=== PATIENT | female | born 1995 | race Caucasian/White ===

== ENCOUNTER 2023-05-29 10:09 | Emergency (ER) | payer MEDICAID ==
[~2023-05-29] VITALS: Ht 172.7 cm; Wt 100.0 kg
[~2023-05-29 10:09] MED LIST: CEPH-558 PO; DIVA-112 PO; GABA-1201 PO; RISP3TAB63 PO
[2023-05-29 10:13] VITALS: BP 110/78; PULSE 71; RESP 16; TEMP 98.3
[2023-05-29] MEDS ORDERED: CEPHALEXIN MONOHYDRATE 500 MG CAPSULE PO ONE (13:15)
[2023-05-29] MEDS ORDERED: OxyCODONE HCL/ACETAMINOPHEN 5-325 MG TABLET PO ONE (13:15)
[2023-05-29] MEDS ORDERED: DOXY-354 PO (13:43)
== END 2023-05-29 18:04 | disposition left against medical advice (07) ==
LOC: EMS 10:09
DX: L02.511 Cutaneous abscess of right hand (principal); F20.9 Schizophrenia, unspecified; Z88.6 Allergy status to analgesic agent; Z91.018 Allergy to other foods; Z91.040 Latex allergy status; Z88.8 Allergy status to other drugs, medicaments and biological substances
CPT/HCPCS: 10160; 84702; 99283; 99284

== ENCOUNTER 2023-09-14 03:27 | Emergency (ER) | payer MEDICAID ==
[~2023-09-14] VITALS: Ht 162.6 cm; Wt 129.1 kg
[~2023-09-14 03:27] MED LIST changes: -CEPH-558 PO; +DOXY-354 PO
[2023-09-14 03:28] VITALS: BP 129/78; PULSE 96; RESP 14; TEMP 98.6
[2023-09-14] MEDS ORDERED: HYDR-4584 PO (03:35)
[2023-09-14] MEDS ORDERED: GABA-1216 PO (03:35)
[2023-09-14] MEDS ORDERED: GABA-1201 PO (03:35)
[2023-09-14] MEDS ORDERED: PRAZ1 PO (03:35)
[2023-09-14] MEDS ORDERED: TRAZ150T80 PO (03:35)
[2023-09-14] MEDS ORDERED: TraZODone HCL 50 MG TABLET PO ONE (04:00)
[2023-09-14] MEDS ORDERED: HydrOXYzine PAMOATE 25 MG CAPSULE PO ONE (04:00)
[2023-09-14] MEDS ORDERED: PHENYLEPHRINE/SHK LV/MIN OIL/PET 57 GM OINTMENT TP ONE (04:00)
== END 2023-09-14 04:18 | disposition home or self-care (01) ==
LOC: EMS 03:27
DX: F41.9 Anxiety disorder, unspecified (principal); K64.9 Unspecified hemorrhoids; F32.A Depression, unspecified; F20.9 Schizophrenia, unspecified; Z88.6 Allergy status to analgesic agent; Z91.018 Allergy to other foods; Z91.040 Latex allergy status; Z88.8 Allergy status to other drugs, medicaments and biological substances
CPT/HCPCS: 99283

== ENCOUNTER 2024-01-19 13:08 | Inpatient (IN) | payer MEDICAID, OTHER ==
[~2024-01-19] VITALS: Ht 162.6 cm; Wt 140.1 kg
[~2024-01-19 13:08] MED LIST changes: +ACET-3385 PO; +CIPR500T10 PO; -DIVA-112 PO; -DOXY-354 PO; +GABA-1216 PO; +METR500 PO; +ONDA-104 PO; +PRAZ1 PO; -RISP3TAB63 PO; +TRAZ150T80 PO
[2024-01-19 14:29] LABS: BASOPHILS % (AUTO) 0.6 % (0.0-2.0); EOSINOPHILS % (AUTO) 0.7 % (1.0-6.0); HEMATOCRIT 43.9 % (36-46); HEMOGLOBIN 14.5 g/dL (12.0-16.0); LYMPHOCYTES % (AUTO) 20.9 % (22.0-44.0); MEAN CORPUSCULAR HEMOGLOBIN 29.9 pg (26.0-34.0); MEAN CORPUSCULAR HGB CONC 33.1 G/dL (31.0-37.0); MEAN CORPUSCULAR VOLUME 90 fL (80-100); MONOCYTES # (AUTO) 0.8 K/uL (0.1-1.0); MONOCYTES % (AUTO) 7.9 % (2.0-9.0); NEUTROPHILS # (AUTO) 6.7 K/uL (1.8-7.7); NEUTROPHILS % (AUTO) 69.9 % (40.0-70.0); PLATELET COUNT (AUTO) 230 K/uL (150-450); RED BLOOD CELL COUNT(AUTO) 4.86 MIL/uL (4.00-5.20); RED CELL DISTRIBUTION WIDTH 14.5 % (11.5-14.5); WHITE BLOOD COUNT (AUTO) 9.6 K/uL (4.5-11.0)
[2024-01-19 14:36] LABS: ANION GAP 8 mmol/L (8-16); CALCIUM, TOTAL 9.1 mg/dL (8.8-10.5); CARBON DIOXIDE 28 mmol/L (22-29); CHLORIDE 102 mmol/L (98-107); CREATININE 0.88 mg/dL (0.60-1.30); GLOMERULAR FILTR. RATE CALC > 60 mL/min (>60); GLUCOSE,RANDOM 100 mg/dL (70-110); SODIUM SERUM 138 mmol/L (136-145); UREA NITROGEN, BLOOD 13 mg/dL (7-18)
[2024-01-19 14:42] LABS: ALCOHOL, BLOOD (SERUM) < 3 mg/dL (0-10)
[2024-01-19 14:47] LABS: COVID AG,FIA SOURCE NASAL SWAB
[2024-01-19 14:49] LABS: ALANINE AMINOTRANSFERASE 39 U/L (12-78); ALBUMIN 3.8 g/dL (3.4-5.0); ALKALINE PHOSPHATASE 73 U/L (46-116); ASPARTATE AMINOTRANSFERASE 22 U/L (15-37); BILIRUBIN,TOTAL 0.4 mg/dL (0.1-1.0); HCG,QUANTITATIVE < 1 mIU/mL (0-6); TOTAL PROTEIN, SERUM 7.8 g/dL (6.4-8.2)
[2024-01-19 14:57] LABS: PH,URINE DRUG SCREEN 7.5 (5.0-8.0)
[2024-01-19 15:00] LABS: ALCOHOL, URINE DRUG SCREEN NEGATIVE (NEGATIVE); AMPHET/METH SCREEN,URINE POSITIVE (NEGATIVE); BARBITURATE SCREEN, URINE NEGATIVE (NEGATIVE); BENZODIAZEPINES SCREEN,URINE NEGATIVE (NEGATIVE); CANNABINOID SCREEN,URINE NEGATIVE (NEGATIVE); COCAINE SCREEN,URINE NEGATIVE (NEGATIVE); METHADONE SCREEN, URINE NEGATIVE (NEGATIVE); OPIATE SCREEN,URINE NEGATIVE (NEGATIVE); PHENCYCLIDINE SCREEN,URINE NEGATIVE (NEGATIVE)
[2024-01-19 15:20] LABS: SARS-COV2 (COVID) ANTIGEN,FIA Negative (Negative)
[2024-01-19] MEDS: SODIUM CHLORIDE 0.9% 250 ML IRRIG SOLUTION BOTTLE IRRIG ONE (17:45)
[2024-01-19] MEDS: LORazepam 2 MG TABLET PO ONE (20:55)
[2024-01-19] MEDS: DiphenhydrAMINE HCL 50 MG CAPSULE PO ONE (20:55)
[2024-01-19] MEDS: HALOPERIDOL 5 MG TABLET PO ONE (20:55)
[2024-01-19] MEDS ORDERED: LORazepam 2 MG TABLET PO PRN (21:30)
[2024-01-20 02:06] VITALS: BP 129/75; PULSE 97; RESP 16; TEMP 98.1; O2SAT 99
[2024-01-20] MEDS ORDERED: DOCUSATE SODIUM 100 MG CAPSULE PO PRN (07:00)
[2024-01-20] MEDS ORDERED: CloNIDine HCL 0.1 MG TABLET PO PRN (07:00)
[2024-01-20] MEDS ORDERED: MAGNESIUM HYDROXIDE SUSPENSION 30 ML UDCUP PO PRN (07:00)
[2024-01-20] MEDS ORDERED: PETROLATUM,WHITE 28 GM JELLY TP PRN (07:00)
[2024-01-20] MEDS ORDERED: MAG HYDROX/ALUMINUM HYD/SIMETH ES 30 ML SUSPENSION UDCUP PO PRN (07:00)
[2024-01-20] MEDS ORDERED: NICOTINE 14 MG/24 HOUR PATCH TD PRN (07:00)
[2024-01-20] MEDS ORDERED: GuaiFENesin/D-METHORPHAN [SUGAR-FREE] 200-20MG/10 ML SYRUP UDCUP PO PRN (07:00)
[2024-01-20] MEDS ORDERED: LOPERAMIDE HCL 2 MG CAPSULE PO PRN (07:00)
[2024-01-20 08:19] VITALS: RESP 18
[2024-01-20] MEDS: TraZODone HCL 150 MG TABLET PO SCH (20:28)
[2024-01-20] MEDS: PRAZOSIN HCL 1 MG CAPSULE PO SCH (20:28)
[2024-01-20 20:40] LABS: GLUCOMETER DEV NAME(LOC) BV3S.; GLUCOSE,POINT OF CARE 104 MG/DL (70-110)
[2024-01-20 20:50] VITALS: BP 131/81; PULSE 86; RESP 20; TEMP 97.2; O2SAT 99
[2024-01-20] MEDS: ACETAMINOPHEN 325 MG TABLET PO PRN (22:07)
[2024-01-21 08:29] VITALS: RESP 18
[2024-01-21] MEDS: HALOPERIDOL 5 MG TABLET PO PRN (11:28)
[2024-01-21] MEDS: HydrOXYzine PAMOATE 50 MG CAPSULE PO PRN (11:28)
[2024-01-21] MEDS: ALBUTEROL SULFATE HFA 90 MCG/PUFF 8 GM INHALER IH PRN (13:13)
[2024-01-21 20:00] VITALS: BP 139/94; PULSE 100; RESP 18; TEMP 99.1; O2SAT 96
[2024-01-21] MEDS: QUEtiapine FUMARATE 200 MG TABLET PO SCH (21:03)
[2024-01-22 20:00] VITALS: RESP 18
[2024-01-22] MEDS: ONDANSETRON HCL 4 MG TABLET PO PRN (22:03)
[2024-01-23 08:18] VITALS: BP 122/76; PULSE 83; RESP 16; TEMP 98; O2SAT 99
[2024-01-23] MEDS: ZOLPIDEM TARTRATE 10 MG TABLET PO PRN (20:35)
[2024-01-24 08:22] VITALS: BP 121/79; PULSE 79; RESP 18; TEMP 98; O2SAT 99
[2024-01-24] MEDS: CIPROFLOXACIN HCL 0.3% 2.5 ML OPHTHALMIC SOLUTION AU SCH (09:00)
[2024-01-24] MEDS: CIPROFLOXACIN HCL 500 MG TABLET PO SCH (09:18)
[2024-01-24] MEDS ORDERED: LORazepam 2 MG/ML VIAL ONE (11:04)
[2024-01-24] MEDS ORDERED: DiphenhydrAMINE HCL 50 MG/ML VIAL ONE (11:05)
[2024-01-24] MEDS ORDERED: HALOPERIDOL LACTATE 5 MG/ML VIAL ONE (11:05)
[2024-01-24] MEDS ORDERED: DiphenhydrAMINE HCL 50 MG/ML VIAL IM ONE (11:15)
[2024-01-24] MEDS ORDERED: HALOPERIDOL LACTATE 5 MG/ML VIAL IM ONE (11:15)
[2024-01-24] MEDS ORDERED: LORazepam 2 MG/ML VIAL IM ONE (11:15)
[2024-01-24 11:20] VITALS: BP 129/79; PULSE 111; RESP 18; TEMP 97.3; O2SAT 98
[2024-01-24 20:21] VITALS: BP 161/96; PULSE 100; RESP 16; TEMP 97.1; O2SAT 98
[2024-01-25 08:10] VITALS: RESP 18
[2024-01-25 08:34] LABS: APPEARANCE,URINE HAZY (CLEAR); BILIRUBIN,URINE NEGATIVE (NEGATIVE); COLOR,URINE YELLOW (YELLOW); GLUCOSE, URINE (UA) NEGATIVE (NEGATIVE); KETONES,URINE NEGATIVE (NEGATIVE); LEUKOCYTE ESTERASE ,URINE NEGATIVE (NEGATIVE); NITRATE,URINE NEGATIVE (NEGATIVE); OCCULT BLOOD,URINE NEGATIVE (NEGATIVE); PROTEIN,URINE NEGATIVE (NEGATIVE); SPECIFIC GRAVITIY, URINE 1.022 (1.003-1.030); UROBILINOGEN,URINE <=1.0 mg/dL (<=1.0)
[2024-01-25 08:47] LABS: ALCOHOL, URINE DRUG SCREEN NEGATIVE (NEGATIVE); AMPHET/METH SCREEN,URINE NEGATIVE (NEGATIVE); BARBITURATE SCREEN, URINE NEGATIVE (NEGATIVE); BENZODIAZEPINES SCREEN,URINE NEGATIVE (NEGATIVE); CANNABINOID SCREEN,URINE NEGATIVE (NEGATIVE); COCAINE SCREEN,URINE NEGATIVE (NEGATIVE); METHADONE SCREEN, URINE NEGATIVE (NEGATIVE); OPIATE SCREEN,URINE NEGATIVE (NEGATIVE); PHENCYCLIDINE SCREEN,URINE NEGATIVE (NEGATIVE)
[2024-01-25] MEDS ORDERED: PRAZ1 PO (10:17)
[2024-01-25] MEDS ORDERED: QUET200T30 PO (10:17)
[2024-01-25] MEDS ORDERED: CIPR2.5D17 AU (19:09)
[2024-01-25] MEDS ORDERED: CIPR500T10 PO (19:09)
== END 2024-01-25 16:00 | disposition home or self-care (01) | DRG 750 ==
LOC: EMS 13:19 → B3A 19:54
PROVIDERS: ADMIT Psychiatry & Neurology Psychiatry; ATTEND Psychiatry & Neurology Psychiatry
PROC: GZHZZZZ Group Psychotherapy (ICD-10-PCS; principal; 2024-01-20)
DX: F25.0 Schizoaffective disorder, bipolar type (principal); K57.92 Diverticulitis of intestine, part unspecified, without perforation or abscess without bleeding; R45.851 Suicidal ideations; F15.10 Other stimulant abuse, uncomplicated; F43.12 Post-traumatic stress disorder, chronic; Z20.822 Contact with and (suspected) exposure to COVID-19; Z79.899 Other long term (current) drug therapy; G47.00 Insomnia, unspecified; I10 Essential (primary) hypertension; Z88.1 Allergy status to other antibiotic agents; Z88.6 Allergy status to analgesic agent; F41.9 Anxiety disorder, unspecified
CPT/HCPCS: 80053; 80307; 81003; 82962; 84702; 85025; G0480; J1200; J1630; J2060; J3535; Q0162

== ENCOUNTER 2024-02-06 15:48 | Inpatient (IN) | payer MEDICAID, OTHER ==
[~2024-02-06] VITALS: Ht 162.6 cm; Wt 140.2 kg
[~2024-02-06 15:48] MED LIST changes: -ACET-3385 PO; +CIPR2.5D17 AU; -GABA-1201 PO; -GABA-1216 PO; -METR500 PO; -ONDA-104 PO; +QUET200T30 PO; -TRAZ150T80 PO
[2024-02-06 19:17] LABS: COVID AG,FIA SOURCE NASAL SWAB
[2024-02-06] MEDS: LORazepam 2 MG/ML VIAL IM ONE (19:29)
[2024-02-06] MEDS: DiphenhydrAMINE HCL 50 MG/ML VIAL IM ONE (19:31)
[2024-02-06] MEDS: HALOPERIDOL LACTATE 5 MG/ML VIAL IM ONE (19:31)
[2024-02-06 19:35] LABS: ALCOHOL, URINE DRUG SCREEN NEGATIVE (NEGATIVE); AMPHET/METH SCREEN,URINE POSITIVE (NEGATIVE); BARBITURATE SCREEN, URINE NEGATIVE (NEGATIVE); BENZODIAZEPINES SCREEN,URINE NEGATIVE (NEGATIVE); CANNABINOID SCREEN,URINE NEGATIVE (NEGATIVE); COCAINE SCREEN,URINE NEGATIVE (NEGATIVE); METHADONE SCREEN, URINE NEGATIVE (NEGATIVE); OPIATE SCREEN,URINE NEGATIVE (NEGATIVE); PHENCYCLIDINE SCREEN,URINE NEGATIVE (NEGATIVE)
[2024-02-06 20:00] LABS: SARS-COV2 (COVID) ANTIGEN,FIA Negative (Negative)
[2024-02-06 20:25] LABS: BASOPHILS % (AUTO) 0.5 % (0.0-2.0); EOSINOPHILS % (AUTO) 0.6 % (1.0-6.0); HEMATOCRIT 43.9 % (36-46); HEMOGLOBIN 14.3 g/dL (12.0-16.0); LYMPHOCYTES # (AUTO) 2.1 K/uL (1.0-4.8); LYMPHOCYTES % (AUTO) 17.7 % (22.0-44.0); MEAN CORPUSCULAR HEMOGLOBIN 29.5 pg (26.0-34.0); MEAN CORPUSCULAR HGB CONC 32.6 G/dL (31.0-37.0); MEAN CORPUSCULAR VOLUME 91 fL (80-100); MONOCYTES # (AUTO) 0.7 K/uL (0.1-1.0); MONOCYTES % (AUTO) 6.2 % (2.0-9.0); NEUTROPHILS # (AUTO) 8.8 K/uL (1.8-7.7); PLATELET COUNT (AUTO) 241 K/uL (150-450); RED BLOOD CELL COUNT(AUTO) 4.85 MIL/uL (4.00-5.20); WHITE BLOOD COUNT (AUTO) 11.7 K/uL (4.5-11.0)
[2024-02-06] MEDS ORDERED: HALOPERIDOL 5 MG TABLET PO PRN (20:30)
[2024-02-06] MEDS ORDERED: LORazepam 2 MG TABLET PO PRN (20:30)
[2024-02-06] MEDS ORDERED: ZOLPIDEM TARTRATE 10 MG TABLET PO PRN (20:30)
[2024-02-06 20:35] LABS: ANION GAP 8 mmol/L (8-16); CALCIUM, TOTAL 8.4 mg/dL (8.8-10.5); CARBON DIOXIDE 28 mmol/L (22-29); CHLORIDE 105 mmol/L (98-107); CREATININE 0.88 mg/dL (0.60-1.30); GLOMERULAR FILTR. RATE CALC > 60 mL/min (>60); GLUCOSE,RANDOM 115 mg/dL (70-110); POTASSIUM 3.8 mmol/L (3.5-5.1); SODIUM SERUM 141 mmol/L (136-145); UREA NITROGEN, BLOOD 14 mg/dL (7-18)
[2024-02-06 20:41] LABS: ALANINE AMINOTRANSFERASE 36 U/L (12-78); ALBUMIN 3.7 g/dL (3.4-5.0); ALKALINE PHOSPHATASE 83 U/L (46-116); ASPARTATE AMINOTRANSFERASE 18 U/L (15-37); BILIRUBIN,TOTAL 0.2 mg/dL (0.1-1.0); TOTAL PROTEIN, SERUM 7.6 g/dL (6.4-8.2)
[2024-02-06 21:06] LABS: ALCOHOL, BLOOD (SERUM) < 3 mg/dL (0-10)
[2024-02-07 02:15] VITALS: BP 128/71; PULSE 77; RESP 18; TEMP 96.7; O2SAT 97
[2024-02-07] MEDS ORDERED: ALBUTEROL SULFATE HFA 90 MCG/PUFF 8 GM INHALER IH PRN (06:00)
[2024-02-07] MEDS ORDERED: DOCUSATE SODIUM 100 MG CAPSULE PO PRN (06:00)
[2024-02-07] MEDS ORDERED: BENZOCAINE/MENTHOL LOZENGE PO PRN (06:00)
[2024-02-07] MEDS ORDERED: ONDANSETRON HCL 4 MG TABLET PO PRN (06:00)
[2024-02-07] MEDS ORDERED: OMEPRAZOLE 20 MG CAPSULE PO PRN (06:00)
[2024-02-07] MEDS ORDERED: PETROLATUM,WHITE 28 GM JELLY TP PRN (06:00)
[2024-02-07] MEDS ORDERED: CloNIDine HCL 0.1 MG TABLET PO PRN (06:00)
[2024-02-07] MEDS ORDERED: LOPERAMIDE HCL 2 MG CAPSULE PO PRN (06:00)
[2024-02-07] MEDS ORDERED: MAGNESIUM HYDROXIDE SUSPENSION 30 ML UDCUP PO PRN (06:00)
[2024-02-07] MEDS ORDERED: MAG HYDROX/ALUMINUM HYD/SIMETH ES 30 ML SUSPENSION UDCUP PO PRN (06:00)
[2024-02-07] MEDS: BACITRACIN 28 GM OINTMENT TP SCH (08:05)
[2024-02-07] MEDS: LITHIUM CARBONATE 300 MG CAPSULE PO SCH (17:00)
[2024-02-07] MEDS: DIVALPROEX SODIUM 500 MG DR TABLET PO SCH (17:00)
[2024-02-07] MEDS: ACETAMINOPHEN 325 MG TABLET PO PRN (17:02)
[2024-02-07] MEDS: QUEtiapine FUMARATE 300 MG TABLET PO SCH (20:07)
[2024-02-07 20:09] VITALS: BP 130/109; PULSE 100; RESP 17; TEMP 97.5; O2SAT 97
[2024-02-07 20:10] VITALS: BP 152/103; PULSE 99; RESP 16; O2SAT 98
[2024-02-07 20:50] VITALS: BP 151/122; PULSE 100; RESP 16; O2SAT 99
[2024-02-08 08:36] VITALS: BP 118/68; PULSE 79; RESP 16; TEMP 97.6; O2SAT 100
[2024-02-08 12:18] VITALS: BP 161/108; PULSE 102; RESP 18; TEMP 96.3; O2SAT 97
[2024-02-08] MEDS: SULFAMETHOX/TRIMETH DS 800-160 MG/TABLET PO SCH (17:00)
[2024-02-08] MEDS: MAGNESIUM SULFATE 454 GM BAG TP SCH (17:24)
[2024-02-08 20:05] VITALS: BP 148/78; PULSE 113; RESP 20; TEMP 98.2; O2SAT 98
[2024-02-09 08:17] VITALS: RESP 18
[2024-02-09 11:15] LABS: APPEARANCE,URINE CLEAR (CLEAR); BILIRUBIN,URINE NEGATIVE (NEGATIVE); COLOR,URINE LIGHT YELLOW (YELLOW); GLUCOSE, URINE (UA) NEGATIVE (NEGATIVE); LEUKOCYTE ESTERASE ,URINE NEGATIVE (NEGATIVE); NITRATE,URINE NEGATIVE (NEGATIVE); OCCULT BLOOD,URINE NEGATIVE (NEGATIVE); PH,URINE 5.5 (5.0-8.0); PROTEIN,URINE TRACE mg/dL (NEGATIVE); SPECIFIC GRAVITIY, URINE 1.027 (1.003-1.030); UROBILINOGEN,URINE <=1.0 mg/dL (<=1.0)
[2024-02-09] MEDS ORDERED: LITH300C3 PO (11:16)
[2024-02-09] MEDS ORDERED: DIVA-112 PO (11:16)
[2024-02-09] MEDS ORDERED: QUET300T2 PO (11:18)
== END 2024-02-09 15:42 | disposition home or self-care (01) | DRG 750 ==
LOC: EMS 15:49 → B3A 21:35
PROVIDERS: ADMIT Psychiatry & Neurology Psychiatry; ATTEND Psychiatry & Neurology Psychiatry
DX: F25.0 Schizoaffective disorder, bipolar type (principal); Z68.43 Body mass index [BMI] 50.0-59.9, adult; R45.851 Suicidal ideations; E66.01 Morbid (severe) obesity due to excess calories; I10 Essential (primary) hypertension; S61.511A Laceration without foreign body of right wrist, initial encounter; K21.9 Gastro-esophageal reflux disease without esophagitis; K59.00 Constipation, unspecified; Z20.822 Contact with and (suspected) exposure to COVID-19; F41.9 Anxiety disorder, unspecified; F12.10 Cannabis abuse, uncomplicated; F15.10 Other stimulant abuse, uncomplicated; E78.5 Hyperlipidemia, unspecified; F43.10 Post-traumatic stress disorder, unspecified; X78.0XXA Intentional self-harm by sharp glass, initial encounter; G47.00 Insomnia, unspecified; Y93.89 Activity, other specified; Y92.89 Other specified places as the place of occurrence of the external cause; Y99.8 Other external cause status; Z88.6 Allergy status to analgesic agent; Z88.1 Allergy status to other antibiotic agents; Z91.040 Latex allergy status; Z98.891 History of uterine scar from previous surgery
CPT/HCPCS: 80053; 80307; 81003; 84703; 85025; 99285; G0480; J1200; J1630; J2060; J3535